=== PATIENT | male | born 1960 ===

== ENCOUNTER 2024-02-20 17:15 | Outpatient (REF) | payer BC, SELFPAY ==
[2024-02-20 17:25] LABS: HCT 43.9 % (40.0-50.0); HGB 14.7 g/dL (13.5-17.5); MCH 30.8 pg (27.0-33.0); MCHC 33.5 % (32.0-36.0); MCV 92 fL (80-95); MPV 10.5 fL (8.0-11.0); Platelet Count 369 10^3/uL (130-400); RBC 4.78 10^6/uL (4.36-5.78); RDW 13.3 % (11.8-14.1); RDW-SD 45.7 fL; WBC 5.69 10^3/uL (4.4-10.8)
[2024-02-20 17:33] LABS: Iron 61 ug/dL (65-175); Total Iron Binding Capacity 337 ug/dL (250-450); Transferrin Sat 18 % (20-55)
[2024-02-20 17:35] LABS: ALT 20 U/L (16-63); AST 22 U/L (15-37); Albumin 3.5 g/dL (3.4-5.0); Alkaline Phosphatase 84 U/L (46-116); Anion Gap 8.6 mmol/L (3-11); BUN 17 mg/dL (7-18); Bilirubin, Total 0.5 mg/dL (0.2-1.0); CO2 29.4 mmol/L (21.0-32.0); CREATININE 0.9 mg/dL (0.70-1.30); Calcium 8.9 mg/dL (8.5-10.1); Chloride 105 mmol/L (98-107); Estimated GFR 94.78 (mL/min/1.73m2); Glucose 67 mg/dL (74-106); Potassium 4.7 mmol/L (3.5-5.1); Sodium 143 mmol/L (136-145); Total Protein 6.5 g/dL (6.4-8.2); Uric Acid 5.2 mg/dL (3.5-7.2)
[2024-02-20 18:06] LABS: Vitamin D 25 Total 31.6 ng/mL (30-100)
[2024-02-20 18:15] LABS: Calculated LDL 118 mg/dL (<100); Cholesterol 204 mg/dL (<200); Ferritin 48 ng/mL (26-388); Folate > 20.0 ng/mL (8.6-20.0); HDL Cholesterol 68 mg/dL (40-60); Triglyceride 92 mg/dL (<150); Vitamin B12 250 pg/mL (193-986)
[2024-02-21 17:31] LABS: PSA, Screening 1.2 ng/mL (<=4.5)
== END 2024-02-20 17:16 | disposition home or self-care (01) ==
LOC: NCHCN 17:15
PROVIDERS: Visit Provider Family Medicine
DX: Z00.00 Encounter for general adult medical examination without abnormal findings (principal); M1A.00X0 Idiopathic chronic gout, unspecified site, without tophus (tophi); D50.9 Iron deficiency anemia, unspecified; E55.9 Vitamin D deficiency, unspecified
CPT/HCPCS: 80053; 80061; 82306; 84153; 85027; 82607; 82728; 82746; 83540; 83550; 84550